=== PATIENT | male | born 1970 | race Caucasian/White ===

== ENCOUNTER 2020-07-29 08:39 | Observation (INO) | payer OTHER ==
[2020-07-29] MEDS ORDERED: ONDANSETRON 4 MG (ODT) TAB ONE (09:21)
[2020-07-29] MEDS ORDERED: MECLIZINE HCL 12.5 MG TAB ONE (09:21)
[2020-07-29 09:22] LABS: Absolute Lymphocytes (CBC) 1.6 K/uL (0.7-4.9); Basophils % 0.4 % (0-1.3); Hematocrit 45.3 % (39.6-49.0); Lymphocytes % 23.1 % (15.3-44.8); MPV 8.3 fL (7.6-11.3); RBC Red Blood Cell Count 5.14 M/uL (4.33-5.43)
[2020-07-29 09:23] LABS: Protime INR 1.18
--- NOTE | 2020-07-29 09:30 | RAD REPORT ---
EXAM DESCRIPTION: CT - Head Brain Wo Cont - 07/29/2020 9:22 am CLINICAL HISTORY: DIZZINESS Headache, drowsiness, nausea COMPARISON: No comparisons TECHNIQUE: All CT scans are performed using dose optimization technique as appropriate and may inclu de automated exposure control or mA/KV adjustment according to patient size. FINDINGS: No intracranial hemorrhage, hydrocephalus or extra-axial fluid collection.No areas of brai n edema or evidence of midline shift. The paranasal sinuses and mastoids are clear. The calvarium is intact. IMPRESSION: No acute intracranial abnormality.
[2020-07-29 09:42] LABS: ALT/SGPT 40 U/L (12-78); AST/SGOT 22 U/L (15-37); Albumin 3.9 g/dL (3.4-5.0); Alkaline Phosphatase 58 U/L (45-117); BUN Blood Urea Nitrogen 13 mg/dL (7-18); Bicarbonate 28 mmol/L (21-32); Bilirubin Direct 0.2 mg/dL (0-0.2); Bilirubin Total 0.8 mg/dL (0.2-1.0); Glucose Level 109 mg/dL (74-106); Magnesium 2.5 mg/dL (1.8-2.4); NT PRO-BNP 16 pg/mL (<125); Potassium 4.1 mmol/L (3.5-5.1); Protein, Total 7.6 g/dL (6.4-8.2); Sodium Level 141 mmol/L (136-145); Troponin (Emerg Dept Use Only) < 0.02 ng/mL (0.0-0.045)
--- NOTE | 2020-07-29 09:59 | RAD REPORT ---
EXAM DESCRIPTION: RAD - Chest Single View - 07/29/2020 9:34 am CLINICAL HISTORY: weakness, dizziness Chest pain. COMPARISON: No comparisons FINDINGS: Portable technique limits examination quality. The lungs are grossly clear. The heart is normal in size. No displaced fractures. IMPRESSION: No acute intrathoracic process suspected.
--- NOTE | 2020-07-29 10:34 | EDPHYS ---
Physician Documentation [facility] Name: Fred Walls Age: 49 yrs Sex: Male : 1970 Arrival Date: 07/29/2020 Time: 08:41 Bed 20 Private MD: Fred Kimball E ED Physician Breezy Fleming HPI: 07/29 08:50 This 49 yrs old Male presents to ER via Ambulatory with complaints of jmm Dizziness, Nausea. 08:50 The patient presents with dizziness, generalized weakness. Onset: The symptoms/episode jmm began/occurred gradually, 1 day(s) ago. Context: occurred at home. Modifying factors: The symptoms are alleviated by nothing, the symptoms are aggravated by nothing. Associated signs and symptoms: Pertinent negatives: chest pain. This is a 49 year old male with a history of hypothyroidism that presents to the ED with complaints of with intermittent episodes of fatigue, dizziness, numbness to his ears. Denies recent URI. Denies fever. Denies chest pain. Denies shortness of breath. Historical: - Allergies: 08:56 No Known Allergies; ss - Home Meds: 08:56 Simvastatin Oral [Active]; levothyroxine oral [Active]; ss - PMHx: 08:56 Hypothyroidism; High Cholesterol; ss - PSHx: 08:56 L knee repair; L thumb; ss - Immunization history:: Adult Immunizations up to date. - Social history:: Smoking status: Patient denies any tobacco usage or history of. ROS: 08:50 Constitutional: Positive for malaise. jmm 08:50 Cardiovascular: Negative for chest pain, orthopnea. 08:50 Respiratory: Negative for shortness of breath. 08:50 Neuro: Positive for dizziness, weakness. 08:50 All other systems are negative. Exam: 08:50 Constitutional: This is a well developed, well nourished patient who is awake, alert, jmm and in no acute distress. Head/Face: atraumatic. ENT: Moist Mucus Membranes Neck: Trachea midline, Supple Chest/axilla: Normal chest wall appearance and motion. Cardiovascular: Regular rate and rhythm. No edema appreciated Respiratory: Normal respirations, no respiratory distress appreciated Abdomen/GI: Non distended, soft Back: Normal ROM 08:50 Skin: General appearance color normal MS/ Extremity: Moves all extremities, no obvious deformities appreciated, no edema noted to the lower extremities Neuro: Awake and alert, normal gait Psych: Behavior is normal, Mood is normal, Patient is cooperative and pleasant 08:50 Eyes: Nystagmus: nystagmus with fast component noted, in the right eye. 08:50 ECG was reviewed by the Attending Physician. Vital Signs: 08:48 BP 146 / 95; Pulse 60; Resp 16; Temp 99.0(TE); Pulse Ox 99% on R/A; Weight 72.57 kg; ss Height 5 ft. 10 in. (177.80 cm); Pain 0/10; 10:30 BP 137 / 86; Pulse 52; Resp 18; Pulse Ox 99% on R/A; ph 08:48 Body Mass Index 22.96 (72.57 kg, 177.80 cm) ss MDM: 08:50 Patient medically screened. [facility] 10:31 Data reviewed: vital signs, nurses notes. Counseling: I had a detailed discussion with [facility] the patient and/or guardian regarding: the historical points, exam findings, and any diagnostic results supporting the discharge/admit diagnosis, lab results, the need for further work-up and treatment in the hospital. ED course: I discussed the patient with Dr. Khoury whom accepted the patient for admission. . 07/29 09:01 Order name: Basic Metabolic Panel [facility] 07/29 09:01 Order name: CBC with Diff [facility] 07/29 09:01 Order name: LFT's; Complete Time: 09:43 [facility] 07/29 09:01 Order name: Magnesium; Complete Time: 09:43 [facility] 07/29 09:01 Order name: NT PRO-BNP; Complete Time: 09:43 [facility] 07/29 09:01 Order name: PT-INR; Complete Time: 09:34 [facility] 07/29 09:01 Order name: Troponin (emerg Dept Use Only); Complete Time: 09:43 [facility] 07/29 09:01 Order name: XRAY Chest (1 view); Complete Time: 10:01 [facility] 07/29 09:01 Order name: CT Head Brain wo Cont; Complete Time: 09:34 [facility] 07/29 09:01 Order name: Basic Metabolic Panel; Complete Time: 09:43 [facility] 07/29 09:01 Order name: CBC with Automated Diff; Complete Time: 09:34 [facility] 07/29 10:27 Order name: Urine Dipstick--Ancillary (enter results); Complete Time: 10:49 mt 07/29 09:01 Order name: EKG; Complete Time: 09:02 [facility] 07/29 09:01 Order name: Cardiac monitoring; Complete Time: 10:01 [facility] 07/29 09:01 Order name: EKG - Nurse/Tech; Complete Time: 10:01 [facility] 07/29 09:01 Order name: IV Saline Lock; Complete Time: 09:15 [facility] 07/29 09:01 Order name: Labs collected and sent; Complete Time: 09:15 [facility] 07/29 09:01 Order name: O2 Per Protocol; Complete Time: :19 [facility] 07/29 09:01 Order name: O2 Sat Monitoring; Complete Time: :19 [facility] 07/29 09:02 Order name: Urine Dipstick-Ancillary (obtain specimen); Complete Time: 11:07 [facility] 07/29 11:43 Order name: CONS Physician Consult EDNV EC:50 Rate is 44 beats/min. Rhythm is regular, Sinus bradycardia with No ectopy. QRS [place] is jmm Normal. [place] interval is normal. QRS interval is normal. QT interval is normal. No Q waves. T waves are Normal. No ST changes noted. Reviewed by me. Administered Medications: 09:19 Drug: Meclizine 50 mg Route: PO; ph 11:08 Follow up: Response: No adverse reaction ph 09:19 Drug: Zofran (Ondansetron) 4 mg Route: PO; ph 11:08 Follow up: Response: No adverse reaction ph Disposition: 14:21 Co-signature as Attending Physician, Breezy Fleming MD I agree with the assessment and kdr plan of care. Disposition: 07/29/20 10:32 Hospitalization ordered by Henok Khoury for Observation. Preliminary diagnosis are Dizziness and giddiness, Bradycardia, unspecified. - Bed requested for Telemetry/MedSurg (observation). - Status is Observation. ph - Condition is Stable. - Problem is new. - Symptoms have improved. Signatures: Dispatcher [employer] EDNV Breezy Fleming MD MD [facility] Marek Foster PA PA Alyson Armas RN RN Uma Allen RN RN Bharti Davis mt Corrections: (The following items were deleted from the chart) 12:07 10:32 Hospitalization Ordered by Henok Khoury MD for Observation. Preliminary mt diagnosis is Dizziness and giddiness; Bradycardia, unspecified. Bed requested for Telemetry/MedSurg (observation). Status is Observation. Condition is Stable. Problem is new. Symptoms have improved. [facility] 12:47 12:07 07/29/2020 10:32 Hospitalization Ordered by Henok Khoury MD for Observation. ph Preliminary diagnosis is Dizziness and giddiness; Bradycardia, unspecified. Bed requested for Telemetry/MedSurg (observation). Status is Observation. Condition is Stable. Problem is new. Symptoms have improved. mt
--- NOTE | 2020-07-29 10:34 | ER ---
Nurse's Notes [facility] Name: Fred Walls Age: 49 yrs Sex: Male : 1970 Arrival Date: 07/29/2020 Time: 08:41 Bed 20 Private MD: Fred Kimball E Diagnosis: Dizziness and giddiness;Bradycardia, unspecified Presentation: 07/29 08:48 Chief complaint: Patient states: Intermittent dizziness, nausea and fatigue that began ss yesterday morning. Denies fever, cough. Coronavirus screen: Client denies travel out of the [place] in the last 14 days. Ebola Screen: Patient denies exposure to infectious person. Patient denies travel to an Ebola-affected area in the 21 days before illness onset. Initial Sepsis Screen: Does the patient meet any 2 criteria? No. Patient's initial sepsis screen is negative. Does the patient have a suspected source of infection? No. Patient's initial sepsis screen is negative. Risk Assessment: Do you want to hurt yourself or someone else? Patient reports no desire to harm self or others. 08:48 Method Of Arrival: Ambulatory ss 08:48 Acuity: KALLIE 3 ss Historical: - Allergies: 08:56 No Known Allergies; ss - Home Meds: 08:56 Simvastatin Oral [Active]; levothyroxine oral [Active]; ss - PMHx: 08:56 Hypothyroidism; High Cholesterol; ss - PSHx: 08:56 L knee repair; L thumb; ss - Immunization history:: Adult Immunizations up to date. - Social history:: Smoking status: Patient denies any tobacco usage or history of. Screenin:16 Abuse screen: Denies threats or abuse. Denies injuries from another. Nutritional ph screening: No deficits noted. Tuberculosis screening: No symptoms or risk factors identified. Fall Risk None identified. Assessment: 09:17 General: Appears in no apparent distress. comfortable, obese, well groomed, Behavior is ph calm, cooperative, appropriate for age, Denies fever, feeling ill. Pain: Denies pain. Neuro: Level of Consciousness is awake, alert, obeys commands, Oriented to person, place, time, situation, Reports dizziness, since yesterday Denies weakness blurred vision headache. Cardiovascular: Capillary refill < 3 seconds in bilateral fingers Patient's skin is warm and dry. Respiratory: Airway is patent Respiratory effort is even, unlabored, Respiratory pattern is regular, symmetrical. GI: Abdomen is flat, non-distended, Reports nausea, Patient currently denies abdominal pain, diarrhea, vomiting. : No signs and/or symptoms were reported regarding the genitourinary system. Derm: Skin is intact, is healthy with good turgor, Skin is pink, warm \T\ dry. Musculoskeletal: Circulation, motion, and sensation intact. Range of motion: intact in all extremities. 10:30 Reassessment: Patient appears in no apparent distress at this time. Patient and/or ph family updated on plan of care and expected duration. Pain level reassessed. Patient is alert, oriented x 3, equal unlabored respirations, skin warm/dry/pink. Patient states symptoms have improved. 11:30 Reassessment: Patient appears in no apparent distress at this time. Patient and/or ph family updated on plan of care and expected duration. Pain level reassessed. Patient is alert, oriented x 3, equal unlabored respirations, skin warm/dry/pink. Hospitalist at bedside. 12:36 Reassessment: Report called to NAA Willams. ph Vital Signs: 08:48 BP 146 / 95; Pulse 60; Resp 16; Temp 99.0(TE); Pulse Ox 99% on R/A; Weight 72.57 kg; ss Height 5 ft. 10 in. (177.80 cm); Pain 0/10; 10:30 BP 137 / 86; Pulse 52; Resp 18; Pulse Ox 99% on R/A; ph 08:48 Body Mass Index 22.96 (72.57 kg, 177.80 cm) ED Course: 08:41 Patient arrived in ED. mr 08:42 Fred Kimball MD is Private Physician. mr 08:50 Marek Foster PA is PHCP. jmm 08:50 Breezy Fleming MD is Attending Physician. [facility] 08:54 Triage completed. ss 08:56 Arm band placed on right wrist. ss 09:05 Uma Allen RN is Primary Nurse. ph 09:12 Initial lab(s) drawn, by nm, sent to lab. Inserted saline lock: 20 gauge in right dh3 forearm, using aseptic technique. Blood collected. 09:16 Patient has correct armband on for positive identification. Placed in gown. Bed in low ph position. Call light in reach. Side rails up X 1. Pulse ox on. NIBP on. Door closed. Noise minimized. 09:21 CT completed. Patient tolerated procedure well. Patient moved to CT via wheelchair. Patient moved to radiology. 09:22 CT Head Brain wo Cont In Process Unspecified. EDMS 09:32 XRAY Chest (1 view) In Process Unspecified. EDMS 10:00 EKG done, by ED staff, reviewed by Marek GLASS. 3 10:32 Henok Khoury MD is Hospitalizing Provider. [facility] 12:37 No provider procedures requiring assistance completed. Patient admitted, IV remains in ph place. Administered Medications: 09:19 Drug: Meclizine 50 mg Route: PO; ph 11:08 Follow up: Response: No adverse reaction ph 09:19 Drug: Zofran (Ondansetron) 4 mg Route: PO; ph 11:08 Follow up: Response: No adverse reaction ph Outcome: 10:32 Decision to Hospitalize by Provider. [facility] 12:37 Admitted to Tele accompanied by tech, family with patient, via wheelchair, room 217, ph Report called to Екатерина 12:37 Condition: good 12:37 Instructed on the need for admit. 12:47 Patient left the ED. ph Signatures: Dispatcher [employer] EDMarek Sesay PA PA jmm Rivera, Mary mr MagdalenoAlyson, RN RN Uma Moore RN RN ph Warren, Shannon sw Herrera, Deanna [facility]
[2020-07-29 10:46] LABS: Urine Blood NEGATIVE (NEG); Urine Glucose NEGATIVE (NEG); Urine Protein NEGATIVE (NEG); Urine Specific Gravity >1.030 (1.005-1.030); Urine pH 6.5 (5.0-7.0)
--- NOTE | 2020-07-29 11:49 | P.HP ---
Certification for Inpatient Patient admitted to: Observation With expected LOS: <2 Midnights Practitioner: I am a practitioner with admitting privileges, knowledge of patient current condition, hospital course, and medical plan of care. Services: Services provided to patient in accordance with Admission requirements found in Title 42 Section 412.3 of the Code of Federal Regulations Patient History Date of Service: 07/29/20 Reason for admission: Intermittent dizziness, generalized weakness, inner ear numbness History of Present Illness: 49-year-old male, PMH: Hypothyroidism, hyperlipidemia, who presents to the ED due to 2 days of intermittent dizziness, generalized weakness, fatigue, and Inner ear numbness. Patient states this began at 11:00 a.m. yesterday, and these episodes last anywhere from several min to hr at a time. Initially would have resolution for several hr but no seeming to have these episodes more frequently. He reports these episodes seem to occur randomly, are not positional, can occur when sitting down, or walking, or driving his car. The dizziness is improved when he lays down and closes his eyes, however the other symptoms persist. He reports nothing seems to aggravate/worsen/instigate the symptoms. He also endorses some tingling of his right leg from his right products to his ankle, however he states this has been intermittent for over a year now and no significant change lately. He reports some slight chills with some of these episodes today. Otherwise reports no fevers, no vision changes, no hearing changes, no numbness besides his inner ear, no chest pain, no shortness of breath, no abdominal pain, no changes in urinary/bowel habits, no rashes/lesions. In the ED, he was noted to have sinus bradycardia mostly in the 50s, but reportedly dropped to the mid 40s briefly. EKG was otherwise unremarkable. CBC, CMP, troponin, TSH, UA were all rather unremarkable. CXR: No acute interest status suspected. CT brain: No acute intracranial abnormality The patient was given meclizine in the ED which temporarily results his symptoms, however they returned. Allergies No Known Allergies Allergy (Unverified 07/29/20 13:01) Home medications list reviewed: Yes Home Medications: Levothyroxine [Synthroid*] 1 tab PO DAILY 07/29/20 Simvastatin 1 tab PO BEDTIME 07/29/20 - Past Medical/Surgical History -: Hypothyroidism -: Hyperlipidemia -: ACL repair -: Thumb surgery - Family History Father -: Heart disease - Social History Smoking Status: Never smoker Alcohol use: No Review of Systems 10-point ROS is otherwise unremarkable Physical Examination - Physical Exam General: Alert, In no apparent distress HEENT: PERRLA, Mucous membr. moist/pink, Other (Normal bilateral tympanic membranes), EOMI Neck: JVD not distended, No LAD Respiratory: Clear to auscultation bilaterally, Normal air movement Cardiovascular: No edema, Regular rate/rhythm, Normal S1 S2 Gastrointestinal: Soft and benign, Non-distended, No tenderness Musculoskeletal: No erythema, No tenderness Integumentary: No rashes Neurological: Normal speech, Normal strength at 5/5 x4 extr, Cranial nerves 3-12 intact, Normal affect, Other (Laura-Hallpike negative) - Studies Laboratory Data (last 24 hrs) 07/29/20 09:12: PT 13.9 H, INR 1.18 07/29/20 09:12: WBC 7.0, Hgb 15.4, Hct 45.3, Plt Count 275 07/29/20 09:12: Sodium 141, Potassium 4.1, BUN 13, Creatinine 1.09, Glucose 109 H, Magnesium 2.5 H, Total Bilirubin 0.8, AST 22, ALT 40, Alkaline Phosphatase 58 Assessment and Plan - Advance Directives Does patient have a Living Will: No Does patient have a Durable POA for Healthcare: No Physician Review Additional Text: Intermittent dizziness, generalized weakness, inner ear numbness Hypothyroidism Hyperlipidemia Intermittent dizziness, generalized weakness, inner ear numbness -unclear etiology, no focal findings on exam, patient having temporary dizziness lasting seconds to minutes at the time of my exam -does not have otitis media, not completely consistent with BPPV, no reported tinnitus -had temporary relief in the ED with meclizine, however unsure if due to medication or symptoms resolved on their own -will bring patient in for observation and further evaluation given the persistence of the symptoms -continue meclizine t.i.d. as needed -will obtain MRI, echocardiogram, carotid ultrasound -neurology consulted -monitor on telemetry given his bradycardia -patient reports he runs 2 miles a day, and heart rate is typically in the 50s to 60s Hypothyroidism Hyperlipidemia -stable continue home meds Dispo: anticipate dc home tomorrow Time Spent Managing Pts Care (In Minutes): 60
[2020-07-29] MEDS ORDERED: ONDANSETRON 4 MG/2 ML VIAL IV PRN (13:01)
[2020-07-29 13:04] VITALS: BMI 22.9
[2020-07-29] MEDS: MECLIZINE HCL 12.5 MG TAB PO SCH ×2 (13:41→20:40)
[2020-07-29 14:16] LABS: Thyroid Stimulating Hormone 2.51 uIU/mL (0.360-3.740)
--- NOTE | 2020-07-29 14:57 | RAD REPORT ---
EXAM DESCRIPTION: MRI - MRA Head Wo Cont - 07/29/2020 2:28 pm CLINICAL HISTORY: Intermittent ear numbness, dizziness COMPARISON: No remote MRA imaging TECHNIQUE: Axial and coronal 3D [id number] image acquisition was performed. 3D rotational images were generated with source and reconstruction images reviewed. Horizontal and vertical axis rotation al views generated using MIP protocol. FINDINGS: No aneurysm or vascular malformation. Basilar artery and distal vertebral arteries show no suspicious finding. There is a bulbous appearance to the common origin of the right superior cerebel lar and P1 PILOT TEACHER segments. This is not believed to be aneurysm. Patient has a small P1 PILOT TEACHER segment as a normal variant. There is a large right posterior communicating artery. Bilateral internal carotid arteries show no suspicious finding. The anterior, middle and posterior ce rebral arteries show no named branch occlusion, vasculitis or other suspicious finding. No significan t luminal narrowing identifiable. IMPRESSION: As detailed above, MRA Head imaging shows no significant or suspicious finding.
--- NOTE | 2020-07-29 15:00 | RAD REPORT ---
EXAM DESCRIPTION: MRI - Brain W/Wo Cont - 07/29/2020 2:47 pm CLINICAL HISTORY: intermittent inner ear numbness, dizziness COMPARISON: MRA Head Wo Cont dated 07/29/2020; Head Brain Wo Cont dated 07/29/2020CT head same date TECHNIQUE: Sagittal and axial T1-weighted images were obtained. Axial PD/heavily T2-weighted and T2- FLAIR images were obtained along with axial DWI/ADC mapping sequences. Coronal heavily T2 weighted s equence obtained. Axial and coronal post-contrast T1-weighted images were also obtained. A 16 ml Mul tihance contrast following utilized. FINDINGS: No intracranial hemorrhage, mass or acute infarction. There is no edema or shift of midli ne structures. No extra-axial fluid collections. Myers-matter/white matter junction is preserved. Sig nal voids are seen as a normal finding in the major intracranial vessels. Patient has no measurable c hronic ischemic change. No significant atrophy identifiable. Ventricles are normal. Post-contrast images show normal enhancement. No dural thickening. No acute mastoid air cell or paranasal sinus finding. No globe or orbital content acute finding. IMPRESSION: No infarction or other acute intracranial finding. No measurable chronic ischemic change or atrophy.
--- NOTE | 2020-07-29 15:02 | RAD REPORT ---
EXAM DESCRIPTION: MRI - MRA Neck W/Wo Cont - 07/29/2020 2:46 pm CLINICAL HISTORY: Dizziness, intermediate gong face and ear numbness TECHNIQUE: MR angiography of the cervical vasculature performed. Coronal imaging plane acquisition u tilized. A MultiHance contrast volume was utilized. Coronal reformatted images were generated and re viewed. Vertical axis 3D rotational projections obtained using maximum intensity projection protocol. FINDINGS: Aortic arch is 3 vessel configuration with no origins stenosis. Subclavian arteries show n o suspicious finding. Codominant vertebral arteries are seen with normal origins. No basilar artery abnormality seen. No focal stenosis or dissection. No significant atherosclerotic change identifiable. IMPRESSION: Contrast enhanced MRA neck imaging showing no significant or suspicious finding.
--- NOTE | 2020-07-29 15:25 | RAD REPORT ---
EXAM DESCRIPTION: - CP - 07/29/2020 3:06 pm CLINICAL HISTORY: intermittent dizziness, weakness, inner ear numb COMPARISON: No comparisons TECHNIQUE: Real-time sonographic evaluation of bilateral carotid and vertebral systems was performed . Myers scale and Doppler interrogation were performed with waveform tracing bilaterally. FINDINGS: Normal high resistance waveforms are noted in both external carotid arteries. The common c arotid arteries and internal carotid arteries show normal low resistance waveforms. Mild plaquing changes are present in the right carotid bulb- ICA junction. Minimal plaquing changes a re seen in the left bulb. There is no visual evidence for luminal narrowing. Peak systolic and end di astolic velocity values and the ICA/CCA ratios are in the non-hemodynamically significant range. No d issection findings. Antegrade flow seen in both vertebral arteries. Velocity values and ratios were recorded and are retained in the patient's imaging records. IMPRESSION: Mild bilateral carotid bulb region atherosclerotic change. No evidence of a hemodynamically significant stenosis.
[2020-07-29] MEDS ORDERED: ACETAMINOPHEN 325 MG TABLET PO PRN (21:01)
[2020-07-29 22:57] VITALS: O2SAT 96
--- NOTE | 2020-07-30 01:03 | CON ---
Reason For Consultation: Mr. Walls is a 49-year-old patient with a consultation requested because of dizziness and generalized weakness with intermittent occurrences. History Of Present Illness: Mr. Walls is a 49-year-old right-handed patient with hypothyroi dism, dyslipidemia, who comes to [facility] with about 2-3 days of generalized weakness, diz ziness, sensation of falling forwards, fatigue, some "numbness in the ear." The patient's current ev ent began around 11 a.m. on the 28 of July and he said it began with a sensation in the top of his head that spread downward to both sides with a sensation of numbness in the inner ear, had weakn ess, which may potentially have been more on the right than on the left side. He was not able to imp rove these symptoms by turning or moving his head around, although eventually when lying down with hi s eyes closed, his symptoms seemed to improve. The symptoms continued and did not resolve after ching ral hours. He also notes independent tingling in the right thigh, hip, and leg, as well as the ankle . In retrospect, he reports similar episodes that began into the top of his head, total of about 4 w ith one occurring several years ago. He does regular physical activity including running 2-4 miles a nd denies these episodes, were precipitated actually during any of his physical exercises. At [facility], his head CT scan was unremarkable. Subsequent brain MRI, MRA ruled out stroke or aneu rysm within the head and neck. His carotid artery ultrasound did not reveal evidence of hemodynamica lly significant stenosis, but there was mild bilateral atherosclerosis in the carotid bulbs. Laboratory Studies: Showed normal complete blood count with differential. INR 1.18. Chemistries sh owed slightly elevated glucose of 109. Magnesium slightly elevated at 2.5. Rest of his studies incl uding liver function studies were normal. Urinalysis essentially unremarkable. His chest x-ray show ed no abnormalities. Physical Examination: GENERAL: Mr. Walls is alert and oriented to person, place, time, and situation. Follows all commands appropriately. NEUROLOGIC: He has no cranial nerve deficits on 2 through 12. He has no motor deficits in his upper and lower extremities. His coordination is intact in the upper and lower extremities. His gait is normal. Reflexes are 3+ in the upper and lower extremities and symmetric. His gait shows good stanc e, right arm swings. Assessment: Mr. Walls is a 49-year-old patient with paroxysmal episodes of sensory disturbances along with symptoms of vertigo with at times right-sided predominance. He has no history of headaches or migraines. He does have risk factors for stroke including dyslipidemia and has not been on an aspiri n regimen. Plan: 1.Aspirin 81 mg daily. 2.Meclizine 25 mg every 8 hours as needed. 3.Routine electroencephalogram. 4.Consider ambulatory video EEG monitoring for event characterization if events have not been furthe r characterized by routine EEG. The patient may be discharged home and follow up with Dr. Dylan allisone the EEG is done. MELCHOR/SHAYLA Voice ID: [id number] Report ID: [id number]
[2020-07-30 04:06] LABS: Protime INR 1.17
[2020-07-30 04:12] LABS: Absolute Lymphocytes (CBC) 2.3 K/uL (0.7-4.9); Basophils % 0.3 % (0-1.3); Hematocrit 43.6 % (39.6-49.0); Lymphocytes % 25.7 % (15.3-44.8); MPV 8.5 fL (7.6-11.3); RBC Red Blood Cell Count 4.94 M/uL (4.33-5.43)
[2020-07-30 04:23] LABS: Albumin 3.7 g/dL (3.4-5.0); Bilirubin Total 0.9 mg/dL (0.2-1.0); Magnesium 2.5 mg/dL (1.8-2.4); Potassium 4.4 mmol/L (3.5-5.1)
[2020-07-30] MEDS: MECLIZINE HCL 12.5 MG TAB PO SCH (08:20)
--- NOTE | 2020-07-30 08:34 | P.DS ---
Admission Date: 07/29/20 Discharge Date: 07/30/20 Primary Care Provider: Dr. Kimball Disposition: ROUTINE DISCHARGE Discharge Condition: GOOD Reason for Admission: Intermittent dizziness, generalized weakness, inner ear numbness Consultations: Neurology - Dr. Richardson Procedures: CXR (07/29): Lungs are grossly clear. Heart is normal in size. No displaced fractures CT head (07/29): No acute intracranial abnormality MRI/MRA of brain(07/29): No infarction or other acute intracranial finding. No measurable chronic ischemic change or atrophy. No significant suspicious findings on MRA Carotid ultrasound (07/29): Mild bilateral carotid bulb region atherosclerotic change. No evidence of hemodynamically significant stenosis TTE (07/30): normal 2D echocardiogram, no wall motion abnormality, no effusion. LVEF: 74% EEG performed on 07/30 and final read is pending at time of discharge Problem list Intermittent/ paroxysmal episodes of dizziness, generalized weakness, inner ear numbness Hypothyroidism Hyperlipidemia Brief History of Present Illness: 49-year-old male, PMH: Hypothyroidism, hyperlipidemia, who presented to the ED due to 2 days of paroxysmal/intermittent dizziness, generalized weakness, fatigue, and Inner ear numbness. Patient states this began at 11:00 a.m. on day prior to admission, and these episodes last anywhere from several min to hr at a time. Initially would have resolution for several hr but now seeming to have these episodes more frequently. He reports these episodes seem to occur randomly, are not positional, can occur when sitting down, or walking, or driving his car. The dizziness is improved when he lays down and closes his eyes, however the other symptoms persist. He reports nothing seems to aggravate/worsen/instigate the symptoms. He also endorses some tingling of his right leg from his right products to his ankle, however he states this has been intermittent for over a year now and no significant change lately. He reports some slight chills with some of these episodes today. Otherwise reports no fevers, no vision changes, no hearing changes, no numbness besides his inner ear, no chest pain, no shortness of breath, no abdominal pain, no changes in urinary/bowel habits, no rashes/lesions. In the ED, he was noted to have sinus bradycardia mostly in the 50s, but rep ortedly dropped to the mid 40s briefly. EKG was otherwise unremarkable. CBC, CMP, troponin, TSH, UA were all rather unremarkable. CXR: No acute interest status suspected. CT brain: No acute intracranial abnormality The patient was given meclizine in the ED which temporarily results his symptoms, however they returned and so he was brought in for observation for further evaluation and management. Hospital Course: Patient was brought in for observation and underwent further evaluation with MRI, MRA of brain, echocardiogram, and carotid ultrasound which were all negative for any acute abnormality. His tympanic membranes were visualized via otoscope and normal. He was started on low-dose aspirin due to his CVA risk with history of hyperlipidemia. He was monitored on telemetry and was noted to have sinus rhythm mostly in the 50s-60s, with a brief drop to 48 bpm while sleeping. No a arrhythmias /heart block noted. Patient's heart rate is likely results of his continued exercise. Given his persistent paroxysmal symptoms, neurology was consulted. They etiology of his symptoms was not clear, however, workup revealed no evidence of CVA/infarct or any other intracranial process. An EEG was performed on 07/30 and final read is pending at time of discharge. Patient was instructed to follow up with Dr. Tabares in the next few weeks. To consider possible video EEG as an outpatient. The patient was discharged with meclizine for symptomatic relief. His Creatinine on admission was 1.09, estimated GFR: 71, and on day of discharge it was 1.12, estimated GFR: 69. Unknown baseline, but likely secondary to dehydration, patient reported decreased fluid intake for several days prior to admission and received contrast for MRI/MRA. He was instructed to follow up with his PCP and to have a repeat BMP to check kidney function in the next week. Vital Signs/Physical Exam: Temp Pulse Resp BP Pulse Ox 97.1 F 49 L 18 112/74 97 07/30/20 04:00 07/30/20 04:00 07/30/20 04:00 07/30/20 04:00 07/30/20 04:00 General: Alert, In no apparent distress HEENT: Atraumatic, PERRLA, Mucous membr. moist/pink, EOMI Neck: Supple, JVD not distended Respiratory: Clear to auscultation bilaterally, Normal air movement Cardiovascular: No edema, Regular rate/rhythm, Normal S1 S2 Gastrointestinal: Soft and benign, Non-distended, No tenderness Musculoskeletal: No erythema, No tenderness Integumentary: No rashes, No breakdown Neurological: Normal speech, Normal strength at 5/5 x4 extr, Cranial nerves 3-12 intact, Normal affect Laboratory Data at Discharge: WBC 9.0 K/uL (4.3-10.9) D 07/30/20 03:16 Hgb 14.9 g/dL (13.6-17.9) 07/30/20 03:16 Hct 43.6 % (39.6-49.0) 07/30/20 03:16 Plt Count 257 K/uL (152-406) 07/30/20 03:16 PT 13.8 SECONDS (9.5-12.5) H 07/30/20 03:16 INR 1.17 07/30/20 03:16 Sodium 142 mmol/L (136-145) 07/30/20 03:16 Potassium 4.4 mmol/L (3.5-5.1) 07/30/20 03:16 BUN 15 mg/dL (7-18) 07/30/20 03:16 Creatinine 1.12 mg/dL (0.55-1.3) 07/30/20 03:16 Glucose 101 mg/dL (74-106) 07/30/20 03:16 Magnesium 2.5 mg/dL (1.8-2.4) H 07/30/20 03:16 Total Bilirubin 0.9 mg/dL (0.2-1.0) 07/30/20 03:16 AST 19 U/L (15-37) 07/30/20 03:16 ALT 34 U/L (12-78) 07/30/20 03:16 Alkaline Phosphatase 55 U/L (45-117) 07/30/20 03:16 Home Medications: Levothyroxine [Synthroid*] 1 tab PO DAILY 07/29/20 Simvastatin 1 tab PO BEDTIME 07/29/20 Meclizine HCl 25 mg PO TID PRN 20 Days #60 tablet 07/30/20 New Medications: Meclizine HCl 25 mg PO TID PRN 20 Days #60 tablet PRN Reason: Dizziness Patient Discharge Instructions: Follow up with PCP within 1 week - repeat BMP to ensure improvement of kidney function. Follow up with Dr. Richardson (Neurology) within 1 month Diet: Regular Activity: Ad maddy Time spent managing pt's care (in minutes): 40
[2020-07-30] MEDS ORDERED: ASPIRIN EC 81 MG TAB PO SCH (09:00)
[2020-07-30 09:02] VITALS: BP 146/88; TEMP 97.2
--- NOTE | 2020-07-30 10:34 | ECHO ---
HEIGHT: 5 ft 10 in WEIGHT: 160 lb 0 oz DATE OF STUDY: 07/30/[address]: Henok Khoury MD 2-DIMENSIONAL: YES M.MODE: YES DOPPLER: YES COLOR FLOW: YES TDS: NO PORTABLE: NO DEFINITY: NO BUBBLE STUDY: NO DIAGNOSIS: DIZZINESS CARDIAC HISTORY: CATHERIZATION: NO SURGERY: NO PROSTHETIC VALVE: NO PACEMAKER: NO MEASUREMENTS (cm) DIASTOLIC (NORMALS) SYSTOLIC (NORMALS) IVSd 0.9 (0.6-1.2) LA Diam 3.4 (1.9-4.0) LVEF 74% LVIDd 4.7 (3.5-5.7) LVIDs 2.7 (2.0-3.5) %FS 43% LVPWd 0.9 (0.6-1.2) Ao Diam 3.2 (2.0-3.7) 2 DIMENSIONAL ASSESSMENT: RIGHT ATRIUM: NORMAL LEFT ATRIUM: NORMAL RIGHT VENTRICLE: NORMAL LEFT VENTRICLE: NORMAL TRICUSPID VALVE: NORMAL MITRAL VALVE: NORMAL PULMONIC VALVE: NORMAL AORTIC VALVE: NORMAL PERICARDIAL EFFUSION: NONE AORTIC ROOT: NORMAL LEFT VENTRICULAR WALL MOTION: NORMAL. DOPPLER/COLOR FLOW: NORMAL. COMMENTS: NORMAL 2D ECHO. NO WALL MOTION ABNORMALITY. NO EFFUSION. TECHNOLOGIST: FIFI STEINBERG
--- NOTE | 2020-07-31 10:55 | EEG ---
CHART: [id number] TEST ID#: [id number] DATE OF STUDY: 07/30/2020 THE EEG WAS RECORDED PORTABLE IN THE PATIENT'S ROOM ON A 17 CHANNEL MACHINE. ELECTRODES WERE APPLIED IN THE USUAL MANNER USING THE INTERNATIONAL 10-20 SYSTEM. THE WAKING BACKGROUND RHYTHM IN THIS RECORD CONSISTS OF VERY WELL DEVELOPED AND WELL ORGANIZED WAVES OF 10 HZ., MAXIMAL IN THE POSTERIOR HEAD REGIONS WHICH ATTENUATE NORMALLY WITH EYE OPENING. LOW-VOLTAGE 18-22 HZ ACTIVITY IS EXPRESSED IN THE FRONTAL REGIONS. THERE ARE NO FOCAL OR LATERALIZING FEATURES. NO EPILEPTIFORM ACTIVITY APPEARS. SLEEP DID NOT OCCUR. HYPERVENTILATION WAS NOT PERFORMED. PHOTIC STIMULATION PRODUCED FAIR DRIVING BILATERALLY. IMPRESSION: NORMAL EEG FOR THE AGE OF THE PATIENT IN [place].
== END 2020-07-30 11:40 | disposition home or self-care (01) ==
LOC: ER 08:39 → ERHOLD 11:57 → 2ND 12:40
PROVIDERS: ADMIT Hospitalist; ATTEND Hospitalist
DX: R42 Dizziness and giddiness (principal); R53.1 Weakness; R20.0 Anesthesia of skin; R20.2 Paresthesia of skin; R00.1 Bradycardia, unspecified; E03.9 Hypothyroidism, unspecified; E78.5 Hyperlipidemia, unspecified; Z20.828 Contact with and (suspected) exposure to other viral communicable diseases; Z82.49 Family history of ischemic heart disease and other diseases of the circulatory system
CPT/HCPCS: 95816; 93005; 93306; 85025 ×2; 80048; 36415 ×2; 83735 ×2; 85610 ×2; 80076; 84443; 81003; 84484; 84439; 80053; 83880; 70450; 71045; 93880; 70553; 70544; 70549; 97116; 97161; 99285; U0002; A9577; G0378 ×3

== ENCOUNTER 2020-09-27 05:51 | Emergency (ER) | payer OTHER ==
[2020-09-27 07:16] LABS: Absolute Lymphocytes (CBC) 1.3 K/uL (0.7-4.9); Basophils % 0.2 % (0-1.3); Hematocrit 47.3 % (39.6-49.0); Lymphocytes % 12.2 % (15.3-44.8); MPV 8.4 fL (7.6-11.3); RBC Red Blood Cell Count 5.29 M/uL (4.33-5.43)
[2020-09-27 07:19] LABS: Protime INR 1.1
[2020-09-27 07:32] LABS: ALT/SGPT 31 U/L (12-78); AST/SGOT 20 U/L (15-37); Albumin 4.1 g/dL (3.4-5.0); Alkaline Phosphatase 68 U/L (45-117); BUN Blood Urea Nitrogen 12 mg/dL (7-18); Bicarbonate 25 mmol/L (21-32); Bilirubin Direct 0.2 mg/dL (0-0.2); Bilirubin Total 1.1 mg/dL (0.2-1.0); Glucose Level 134 mg/dL (74-106); Potassium 3.9 mmol/L (3.5-5.1); Protein, Total 7.7 g/dL (6.4-8.2); Sodium Level 141 mmol/L (136-145)
[2020-09-27] MEDS ORDERED: LORazepam 2 MG/ML VIAL ONE (07:42)
--- NOTE | 2020-09-27 08:56 | ER ---
Nurse's Notes [facility] Name: Fred Walls Age: 49 yrs Sex: Male : 1970 Arrival Date: 09/27/2020 Time: 05:53 Bed 15 Private MD: Fred Kimball E; Osiezagha, Kenneth Diagnosis: Anxiety disorder, unspecified Presentation: 09/27 05:56 Acuity: KALLIE 3 sg 05:56 Chief complaint: Patient states: (psychiatry) prescribed prozac ( generic sg form), started with 10 mg dosage x1 week and increased the dosage last week. pt reports his anxiety is worse, and his panic attacks last for hours as opposed to only short episodes of anxiety attacks. pt denies any other complaints at this time. Coronavirus screen: Client denies travel out of the [place] in the last 14 days. At this time, the client does not indicate any symptoms associated with coronavirus-19. Ebola Screen: Patient negative for fever greater than or equal to 101.5 degrees Fahrenheit, and additional compatible Ebola Virus Disease symptoms Patient denies exposure to infectious person. Patient denies travel to an Ebola-affected area in the 21 days before illness onset. No symptoms or risks identified at this time. Initial Sepsis Screen: Does the patient meet any 2 criteria? No. Patient's initial sepsis screen is negative. Does the patient have a suspected source of infection? No. Patient's initial sepsis screen is negative. Risk Assessment: Do you want to hurt yourself or someone else? Patient reports no desire to harm self or others. Onset of symptoms was September 27, 2020. Care prior to arrival: None. Mechanism of Injury: No Mechanism of Injury. Transition of care: patient was not received from another setting of care. 05:56 Method Of Arrival: Ambulatory sg Triage Assessment: 05:56 General: Appears in no apparent distress. Behavior is cooperative, anxious, restless. sg Pain: Denies pain. Neuro: Level of Consciousness is awake, alert, obeys commands, Oriented to person, place, time, situation, Moves all extremities. Gait is steady, Speech rapid. Facial symmetry appears normal, Pupils are Pupil Size: 4 mm Reports dizziness, since 2 weeks. Cardiovascular: Patient's skin is warm and dry. Respiratory: Airway is patent Respiratory effort is even, unlabored, Respiratory pattern is regular, symmetrical. GI: Reports decreased appetite, with a 10 lb weight loss over a one month period. : No signs and/or symptoms were reported regarding the genitourinary system. Derm: Skin is pink, warm \T\ dry. Musculoskeletal: Circulation, motion, and sensation intact. Range of motion: intact in all extremities. Historical: - Allergies: 05:56 No Known Allergies; sg - PMHx: 05:56 High Cholesterol; Hypothyroidism; sg - PSHx: 05:56 L knee repair; L thumb; sg - Immunization history:: Adult Immunizations up to date. - Social history:: Smoking status: Patient denies any tobacco usage or history of. Screenin:23 Abuse screen: Denies threats or abuse. Denies injuries from another. Nutritional lp1 screening: No deficits noted. Tuberculosis screening: No symptoms or risk factors identified. Fall Risk None identified. Assessment: 06:45 General: Appears in no apparent distress. slender, Behavior is anxious. Pain: Denies lp1 pain. Neuro: Level of Consciousness is awake, alert, obeys commands, Oriented to person, place, time, situation, Gait is steady, Reports feeling anxious, panic attacks. Cardiovascular: Patient's skin is warm and dry. Respiratory: Respiratory effort is even, unlabored. GI: No signs and/or symptoms were reported involving the gastrointestinal system. : No signs and/or symptoms were reported regarding the genitourinary system. EENT: No signs and/or symptoms were reported regarding the EENT system. Derm: Skin is intact, Skin is dry, Skin is normal. Musculoskeletal: No deficits noted. 07:09 General: Appears in no apparent distress. comfortable, Behavior is calm, cooperative. rb3 Pain: Denies pain. Neuro: Level of Consciousness is awake, alert, obeys commands, Oriented to person, place, time, situation. Cardiovascular: Patient's skin is warm and dry. Respiratory: Airway is patent Respiratory effort is even, unlabored, Respiratory pattern is regular, symmetrical. 08:07 Reassessment: Patient appears in no apparent distress at this time. Patient and/or rb3 family updated on plan of care and expected duration. Pain level reassessed. Patient is alert, oriented x 3, equal unlabored respirations, skin warm/dry/pink. Patient denies pain at this time. 09:15 Reassessment: Patient appears in no apparent distress at this time. Patient and/or rb3 family updated on plan of care and expected duration. Pain level reassessed. Vital Signs: 06:15 BP 148 / 97; lp1 06:39 Pulse 53 MON; Resp 18 S; Temp 98.3(TE); Pulse Ox 100% on R/A; ds4 07:48 BP 133 / 98; Pulse 55; Resp 16; Pulse Ox 96% on R/A; lp1 08:57 BP 138 / 93; Pulse 55; Resp 17; Pulse Ox 95% ; rb3 ED Course: 05:53 Patient arrived in ED. am2 05:54 Fred Kimball MD is Private Physician. am2 05:56 Triage completed. sg 05:56 Arm band placed on. sg 06:05 Allan Alvarez MD is Attending Physician. mh7 06:39 Radha Samayoa RN is Primary Nurse. lp1 06:40 Dale Husain MD is Private Physician. sg 06:55 Inserted saline lock: 20 gauge in right antecubital area, using aseptic technique. ds4 Blood collected. 07:23 Patient has correct armband on for positive identification. lp1 07:26 EKG done, by ED staff, reviewed by Allan Alvarez MD. ds4 08:54 Attending Physician role handed off by Allan Alvarez MD rn 08:54 Main Khoury MD is Attending Physician. rn 08:56 Dale Husain MD is Referral Physician. rn 09:30 No provider procedures requiring assistance completed. rb3 09:30 IV discontinued. rb3 Administered Medications: 07:32 Drug: Ativan 1 mg Route: IVP; Site: right antecubital; iw 07:45 Follow up: Response: No adverse reaction rb3 Outcome: 08:56 Discharge ordered by MD. rn 09:30 Discharged to home ambulatory. rb3 09:30 Condition: stable 09:30 Discharge instructions given to patient, Instructed on discharge instructions, follow up and referral plans. Demonstrated understanding of instructions, follow-up care, Prescriptions given X none 09:30 Patient left the ED. rb3 Signatures: Smith Petersen RN RN sg Williams, Irene, RN RN Main Khoury MD MD rn Pena, Laura, RN RN lp Nikita Campos ds4 Ruth Liz am2 Allan Alvarez MD MD mh7 Eli Campos RN RN rb3 Corrections: (The following items were deleted from the chart) 05:56 05:56 Acuity: KALLIE 2 sg sg 09:41 09:40 Patient left the ED. rb3 rb3
--- NOTE | 2020-09-27 08:56 | EDPHYS ---
Physician Documentation [facility] Name: Fred Walls Age: 49 yrs Sex: Male : 1970 Arrival Date: 09/27/2020 Time: 05:53 Bed 15 Private MD: Fred Kimball E; Osiezagha, Kenneth ED Physician Main Khoury HPI: 09/27 06:52 This 49 yrs old Male presents to ER via Ambulatory with complaints of mh7 Anxiety, new medication questions-side effects. 06:52 The patient presents to the emergency department with anxiety, over unknown mh7 circumstances. Onset: The symptoms/episode began/occurred 2 week(s) ago, and became worse 3 day(s) ago. Past psychiatric history: Prior diagnosis: depression, Anxiety. Associated signs and symptoms: Pertinent positives; anxiety, depression, Pertinent negatives: abdominal pain, chest pain, chills, delusions, fever, hallucinations, headache, homicidal ideation, nausea, night sweats, palpitations, paranoia, shortness of breath, substance abuse, suicide ideation, tremor, vomiting. Severity of symptoms: At their worst the symptoms were moderate yesterday, in the emergency department the symptoms are unchanged. Historical: - Allergies: 05:56 No Known Allergies; sg - PMHx: 05:56 High Cholesterol; Hypothyroidism; sg - PSHx: 05:56 L knee repair; L thumb; sg - Immunization history:: Adult Immunizations up to date. - Social history:: Smoking status: Patient denies any tobacco usage or history of. ROS: 06:52 Constitutional: Negative for fever, chills, and weight loss, Eyes: Negative for injury, mh7 pain, redness, and discharge, ENT: Negative for injury, pain, and discharge, Neck: Negative for injury, pain, and swelling, Cardiovascular: Negative for chest pain, palpitations, and edema, Respiratory: Negative for shortness of breath, cough, wheezing, and pleuritic chest pain, Abdomen/GI: Negative for abdominal pain, nausea, vomiting, diarrhea, and constipation, Back: Negative for injury and pain, : Negative for injury, bleeding, discharge, and swelling, MS/Extremity: Negative for injury and deformity, Skin: Negative for injury, rash, and discoloration, Neuro: Negative for headache, weakness, numbness, tingling, and seizure, Allergy/Immunology: Negative for hives, rash, and allergies, Endocrine: Negative for neck swelling, polydipsia, polyuria, polyphagia, and marked weight changes, Hematologic/Lymphatic: Negative for swollen nodes, abnormal bleeding, and unusual bruising. Exam: 06:52 Head/Face: Normocephalic, atraumatic. Eyes: Pupils equal round and reactive to light, mh7 extra-ocular motions intact. Lids and lashes normal. Conjunctiva and sclera are non-icteric and not injected. Cornea within normal limits. Periorbital areas with no swelling, redness, or edema. Neck: Trachea midline, no thyromegaly or masses palpated, and no cervical lymphadenopathy. Supple, full range of motion without nuchal rigidity, or vertebral point tenderness. No Meningismus. Chest/axilla: Normal chest wall appearance and motion. Nontender with no deformity. No lesions are appreciated. Cardiovascular: Regular rate and rhythm with a normal S1 and S2. No gallops, murmurs, or rubs. Normal PMI, no JVD. No pulse deficits. Respiratory: Lungs have equal breath sounds bilaterally, clear to auscultation and percussion. No rales, rhonchi or wheezes noted. No increased work of breathing, no retractions or nasal flaring. Abdomen/GI: Soft, non-tender, with normal bowel sounds. No distension or tympany. No guarding or rebound. No evidence of tenderness throughout. Back: No spinal tenderness. No costovertebral tenderness. Full range of motion. Skin: Warm, dry with normal turgor. Normal color with no rashes, no lesions, and no evidence of cellulitis. MS/ Extremity: Pulses equal, no cyanosis. Neurovascular intact. Full, normal range of motion. Neuro: Awake and alert, GCS 15, oriented to person, place, time, and situation. Cranial nerves II-XII grossly intact. Motor strength 5/5 in all extremities. Sensory grossly intact. Cerebellar exam normal. Normal gait. 06:52 Constitutional: The patient appears in no acute distress, alert, awake, anxious. 06:52 Psych: Behavior/mood is cooperative, anxious, Affect is calm, Oriented to person, place, time, Patient has no thoughts/intents to harm self or others. Judgement / Insight is normal. Memory is normal. Delusions/hallucinations are not present. Vital Signs: 06:15 BP 148 / 97; lp1 06:39 Pulse 53 MON; Resp 18 S; Temp 98.3(TE); Pulse Ox 100% on R/A; ds4 07:48 BP 133 / 98; Pulse 55; Resp 16; Pulse Ox 96% on R/A; lp1 08:57 BP 138 / 93; Pulse 55; Resp 17; Pulse Ox 95% ; rb3 MDM: 07:24 Transition of care: After a detail discussion of the patient's case, care is mh7 transferred to Main Khoury MD. 08:54 Patient medically screened. rn 08:54 Differential diagnosis: anxiety, medication side effect. Data reviewed: vital signs, rn nurses notes, lab test result(s), and as a result, I will discharge patient. Counseling: I had a detailed discussion with the patient and/or guardian regarding: the historical points, exam findings, and any diagnostic results supporting the discharge/admit diagnosis, lab results, the need for outpatient follow up, to return to the emergency department if symptoms worsen or persist or if there are any questions or concerns that arise at home. Special discussion: I discussed with the patient/guardian in detail that at this point there is no indication for admission to the hospital. It is understood, however, that if the symptoms persist or worsen the patient needs to return immediately for re-evaluation. Based on the history and exam findings, there is no indication for further emergent testing or inpatient evaluation. I discussed with the patient/guardian the need to see the psychiatrist for further evaluation of the symptoms. ED course: Signed out to me by Dr. Alvarez, pending "labs". Plan was to dc home if no acute abnormalities in bloodwork, needs to f/u with his psychiatrist to further eval for medication side effects and possible adjustment. . 09/27 06:34 Order name: Acetaminophen; Complete Time: 08:53 09/27 06:34 Order name: Basic Metabolic Panel; Complete Time: 08:53 09/27 06:34 Order name: CBC with Diff; Complete Time: 08:53 09/27 06:34 Order name: ETOH Level; Complete Time: 08:53 09/27 06:34 Order name: Hepatic Function; Complete Time: 08:53 7 09/27 06:34 Order name: PT-INR; Complete Time: 08:53 [facility] 09/27 06:34 Order name: Ptt, Activated; Complete Time: 08:53 [facility] 09/27 06:34 Order name: Salicylate; Complete Time: 08:53 [facility] 09/27 06:34 Order name: Urine Drug Screen [facility] 09/27 06:34 Order name: EKG; Complete Time: 06:35 [facility] 09/27 06:34 Order name: EKG - Nurse/Tech; Complete Time: 07:24 [facility] 09/27 06:34 Order name: IV Saline Lock; Complete Time: 06:59 [facility] 09/27 09:17 Order name: Urine Dipstick--Ancillary (enter results) 09/27 06:34 Order name: Labs collected and sent; Complete Time: 06:59 [facility] Administered Medications: 07:32 Drug: Ativan 1 mg Route: IVP; Site: right antecubital; 07:45 Follow up: Response: No adverse reaction rb3 Disposition: 09/27/20 08:56 Discharged to Home. Impression: Anxiety disorder, unspecified. - Condition is Stable. - Discharge Instructions: Panic Attacks, Generalized Anxiety Disorder. - Medication Reconciliation Form, Thank You Letter, Antibiotic Education, Prescription Opioid Use form. - Follow up: Dale Husain MD; When: 2 - 3 days; Reason: Recheck today's complaints, Re-evaluation by your physician. - Problem is an ongoing problem. - Symptoms have improved. Signatures: Dispatcher [employer] EDMS Smith Petersen RN RN Jen Stafford RN RN Main Khoury MD MD rn Holmes, Maurice, MD MD [facility] Eli Campos RN RN rb3 Corrections: (The following items were deleted from the chart) 09:40 08:56 09/27/2020 08:56 Discharged to Home. Impression: Anxiety disorder, unspecified. rb3 Condition is Stable. Forms are Medication Reconciliation Form, Thank You Letter, Antibiotic Education, Prescription Opioid Use. Follow up: Dale Husain; When: 2 - 3 days; Reason: Recheck today's complaints, Re-evaluation by your physician. Problem is an ongoing problem. Symptoms have improved. rn
[2020-09-27 11:01] LABS: Barbiturates NEGATIVE (NEGATIVE); Benzodiazepines NEGATIVE (NEGATIVE); Cocaine NEGATIVE (NEGATIVE); METHAMPHETAM NEGATIVE (NEGATIVE); Methadone NEGATIVE (NEGATIVE); Opiates NEGATIVE (NEGATIVE); Phencyclidine NEGATIVE (NEGATIVE); THC Cannibis NEGATIVE (NEGATIVE)
[2020-09-27 11:04] LABS: Urine Blood NEGATIVE (NEG); Urine Glucose NEGATIVE (NEG); Urine Protein NEGATIVE (NEG); Urine Specific Gravity 1.025 (1.005-1.030)
[2020-09-27 12:01] VITALS: TEMP 98.3
[2020-09-27 12:04] VITALS: BP 138/93; O2SAT 95
== END 2020-09-27 09:40 | disposition home or self-care (01) ==
LOC: ER 05:51
DX: F41.9 Anxiety disorder, unspecified (principal); E78.00 Pure hypercholesterolemia, unspecified; E03.9 Hypothyroidism, unspecified
CPT/HCPCS: 36415; 80048; 80076; 80307; 80320; 80329; 81003; 85025; 85610; 85730; 93005; 96374; 99284